=== PATIENT | female | born 1990 | race Caucasian/White ===

== ENCOUNTER → 2023-03-17 08:39 | Outpatient (CLI) | payer BC, SELFPAY ==
[2023-03-17 18:30] LABS: Basophils % 0.4 % (0.1-2.0); Eosinophils # 0.7 K/mm3 (0.0-0.4); Eosinophils % 7.8 % (0.1-12.0); Hematocrit 44.3 % (37.0-47.0); Hemoglobin 14.7 g/dL (12.2-16.2); Lymphocytes # 2.6 K/mm3 (0.7-4.5); Lymphocytes % 29.4 % (10-50); Mean Corpuscular HGB Conc 33.1 g/dL (31.8-35.4); Mean Corpuscular Hemoglobin 30.9 pg (27.0-31.2); Mean Corpuscular Volume 93.1 fl (81-99); Mean Platelet Volume 9.5 fl (7.4-10.4); Monocytes # 0.3 K/mm3 (0.1-1.0); Monocytes % 3.7 % (1.7-9.3); Neutrophils # 5.2 K/mm3 (1.8-7.8); Neutrophils % 58.7 % (37.0-80.0); Platelet Count 236 K/mm3 (142-424); Red Blood Count 4.76 M/mm3 (4.20-5.40); Red Cell Distribution Width 13.2 % (11.5-17.5); White Blood Count 8.8 K/mm3 (4.8-10.8)
[2023-03-17 19:07] LABS: Amphetamine/Metha Screen,Urine Negative ng/ml (<1000)
[2023-03-17 19:08] LABS: Benzodiazepines Screen,Urine Negative ng/ml (<200)
[2023-03-17 19:09] LABS: Cannabinoid Screen,Urine Positive ng/ml (<50)
[2023-03-17 19:10] LABS: Cocaine Screen,Urine Negative ng/ml (<300); Methadone Screen,Urine Negative ng/ml (<300)
[2023-03-17 19:11] LABS: Opiate Screen,Urine Negative ng/ml (<300)
[2023-03-17 19:12] LABS: Phencyclidine Screen,Urine Negative ng/ml (<25)
[2023-03-17 20:07] LABS: Alanine Aminotransferase 18 U/L (12-78); Albumin Level 4.5 g/dl (3.5-5.0); Albumin/Globulin Ratio 1.6 (1.1-1.8); Alkaline Phosphatase 55 U/L (38-126); Anion Gap 12.3 mEq/L (5-15); Aspartate Amino Transferase 30 U/L (14-36); Bilirubin,Total 0.4 mg/dl (0.2-1.3); Blood Urea Nitrogen 9 mg/dl (7-17); Calcium 8.6 mg/dl (8.4-10.2); Carbon Dioxide 26 mmol/L (22.0-30.0); Chloride 103 mmol/L (98-107); Chol/HDL Ratio 3.1 (1-3.5); Cholesterol 190 mg/dl (140-200); Estimated Glomerular Filt Rate 96 ml/min (>60); GFR (African American) 117 ML/MIN (>60); Globulin 2.9 g/dL (1.3-3.2); Glucose 60 mg/dl (74-100); HDL Cholesterol 62 mg/dl (40-60); Potassium 4.3 mmoL/L (3.5-5.1); Sodium 137 mmol/L (136-145); Total Protein,Serum 7.4 g/dl (6.3-8.2); Triglycerides 108 mg/dl (30-150); VLDL Cholesterol 22 mg/dL (0-40)
[2023-03-17 20:12] LABS: Barbiturates Screen,Urine Negative ng/ml (<200)
[2023-03-17 20:38] LABS: Thyroid Stimulating Hormone 1.33 uIU/mL (0.465-4.68)
== END ==
PROVIDERS: PCP Family Medicine; Visit Provider Family Medicine
DX: F90.9 Attention-deficit hyperactivity disorder, unspecified type (principal); Z79.899 Other long term (current) drug therapy
CPT/HCPCS: 80053; 80061; 80305; 84443; 85025

== ENCOUNTER 2023-04-21 19:44 | Outpatient (CLI) | payer BC, SELFPAY ==
[2023-04-21 22:40] LABS: Amphetamine/Metha Screen,Urine Positive ng/ml (<1000); Barbiturates Screen,Urine Negative ng/ml (<200); Benzodiazepines Screen,Urine Negative ng/ml (<200); Cannabinoid Screen,Urine Positive ng/ml (<50); Cocaine Screen,Urine Negative ng/ml (<300); Methadone Screen,Urine Negative ng/ml (<300); Opiate Screen,Urine Negative ng/ml (<300); Phencyclidine Screen,Urine Negative ng/ml (<25)
== END 2023-04-21 23:59 ==
LOC: LAB.DROPOF 19:45
PROVIDERS: PCP Family Medicine; Visit Provider Family Medicine
DX: Z79.899 Other long term (current) drug therapy (principal)
CPT/HCPCS: 80307

== ENCOUNTER 2023-06-30 19:01 | Outpatient (CLI) | payer BC, SELFPAY ==
[2023-06-30 18:49] LABS: C-Reactive Protein 3.3 mg/L (0-4)
[2023-07-13 13:54] LABS: Antinuclear Antibodies (ANA) NEGATIVE; Rheumatoid Factor IGA < 7 U (<7); Rheumatoid Factor IGM < 7 U (<7)
== END 2023-06-30 23:59 ==
LOC: LAB.DROPOF 19:01
PROVIDERS: PCP Family Medicine; Visit Provider Family Medicine
DX: R29.898 Other symptoms and signs involving the musculoskeletal system (principal)
CPT/HCPCS: 86038; 86140; 86431